=== PATIENT | female | born 1975 | race Caucasian/White ===

== ENCOUNTER 2021-12-19 17:40 | Outpatient (REF) | payer MEDICAID, SELFPAY ==
[2021-12-19 18:37] LABS: HCT 25.5 % (36.0-46.0); MCH 18.1 pg (27.0-33.0); MCHC 26.7 % (32.0-36.0); MPV 9.9 fL (8.0-11.0); Platelet Count 472 10^3/uL (130-400); RBC 3.75 10^6/uL (3.93-5.22); RDW 17.6 % (11.7-14.6); RDW-SD 42.6 fL; WBC 7.17 10^3/uL (4.4-10.8)
[2021-12-19 18:46] LABS: Anion Gap 6.5 mmol/L (3-11); BUN 15 mg/dL (7-18); CO2 28.5 mmol/L (21.0-32.0); CREATININE 0.6 mg/dL (0.55-1.02); Calcium 8.4 mg/dL (8.5-10.1); Calculated LDL 93 mg/dL (<100); Chloride 104 mmol/L (98-107); Cholesterol 176 mg/dL (<200); Glucose 75 mg/dL (74-106); HDL Cholesterol 73 mg/dL (40-60); Sodium 139 mmol/L (136-145); TSH 3.45 uIU/mL (0.36-3.74); Triglyceride 53 mg/dL (<150)
[2021-12-19 20:25] LABS: HGB 6.8 g/dL (11.2-15.7)
[2021-12-19 20:29] LABS: Abs Immature Grans 0.01 10^3/uL (0.0-0.06); Absolute Basophil Count 0.08 10^3/uL (0.0-0.2); Absolute Eosinophil Count 0.17 10^3/uL (0.0-0.7); Absolute Lymphocyte Count 2.07 10^3/uL (1.2-3.4); Absolute Monocyte Count 0.48 10^3/uL (0.1-0.8); Absolute Neutrophil Count 4.42 10^3/uL (1.2-6.7); Basophils % 1.1; Eosinophils % 2.4; Immature Grans % 0.1; Lymphocytes % 28.6; Monocytes % 6.6; Neutrophils % 61.2
[2021-12-19 20:32] LABS: Anisocytosis 3+; Diff Comment RBC Morph Reviewed; Hypochromasia 2+; Microcytosis 3+
[2021-12-21 11:04] LABS: Hepatitis C Ab w Rflx HCV PCR Negative (Negative)
[2021-12-21 11:20] LABS: HIV-1/2 Ag & Ab Screen Negative (Negative)
== END 2021-12-19 17:41 | disposition home or self-care (01) ==
LOC: NCHCN 17:40
PROVIDERS: Visit Provider Physician Assistant
DX: Z11.59 Encounter for screening for other viral diseases (principal); E07.9 Disorder of thyroid, unspecified; Z11.4 Encounter for screening for human immunodeficiency virus [HIV]; Z13.220 Encounter for screening for lipoid disorders; Z00.00 Encounter for general adult medical examination without abnormal findings
CPT/HCPCS: 80048; 80061; 85027; 86803; 87389; 84443; 85007

== ENCOUNTER 2022-12-02 11:59 | Outpatient (REF) | payer MEDICAID, SELFPAY ==
--- NOTE | 2022-12-02 10:30 | PAPFT_PTH ---
PATIENT: Nicolle Marrero LOC: [facility]#:[id number] AGE/SX: 47/F ROOM: RE12/02/[address]: Vita Mcdonald : 1975 BED: DIS: 12/02/2022 SPEC #: [id number] RECD: 12/02/22 18:20 STATUS: ERNIEDevonte REQ #: [id number] JUAN: 12/02/22 10:[address]: Vita Mcdonald DEPT: [facility] Cytology RECD BY: Danii Muñoz ENTERED: 12/02/22 18:20 SP TYPE: PAPFT OTHR DR: Donnie Veloz Tissues: 1 - CX/ENDOCX FOR PAP SMEARS Procedures: PAP THIN PREP/[facility] Screening HPV DNA PROBE Comments: [id number]
[2022-12-02 15:43] LABS: Iron 134 ug/dL (50-170); Total Iron Binding Capacity 346 ug/dL (250-450); Transferrin Sat 39 % (15-50)
[2022-12-02 15:52] LABS: Anion Gap 9.7 mmol/L (3-11); BUN 9 mg/dL (7-18); CO2 31.3 mmol/L (21.0-32.0); CREATININE 0.7 mg/dL (0.55-1.02); Calcium 9.5 mg/dL (8.5-10.1); Chloride 105 mmol/L (98-107); Estimated GFR 105.95 (mL/min/1.73m2); Ferritin 42 ng/mL (8-252); Glucose 101 mg/dL (74-106); Potassium 3.6 mmol/L (3.5-5.1); Sodium 146 mmol/L (136-145); TSH (W/Ref FT4) 3.04 uIU/mL (0.36-3.74)
[2022-12-02 16:02] LABS: Vitamin D 25 Total 46.1 ng/mL (30-100)
[2022-12-02 23:43] LABS: Parathyroid Hormone,Intact 31 pg/mL (19-88)
[2022-12-05 12:52] LABS: IgA 247 mg/dL (85-499); Interpretation (See Note); Tissue Transglutaminase IgA <1.2 U/mL (<4.0)
== END 2022-12-02 12:00 | disposition home or self-care (01) ==
LOC: NCHCN 11:59
PROVIDERS: PCP Physician Assistant; Visit Provider Family Medicine
DX: D50.9 Iron deficiency anemia, unspecified (principal); E83.51 Hypocalcemia; R63.5 Abnormal weight gain; Z12.4 Encounter for screening for malignant neoplasm of cervix; Z11.51 Encounter for screening for human papillomavirus (HPV)
CPT/HCPCS: 80048; 82306; 82784; 83516; 85027; 88142; 82728; 83540; 83550; 83970; 84443; 87624

== ENCOUNTER 2024-11-01 18:31 | Outpatient (REF) | payer MEDICAID, SELFPAY ==
[2024-11-01 21:13] LABS: HCT 40.3 % (36.0-46.0); HGB 13.7 g/dL (11.2-15.7); MCH 30.7 pg (27.0-33.0); MCV 90 fL (80-95); MPV 10.6 fL (8.0-11.0); Platelet Count 312 10^3/uL (130-400); RBC 4.46 10^6/uL (3.93-5.22); RDW 12.1 % (11.7-14.6); RDW-SD 40.2 fL; WBC 8.32 10^3/uL (4.4-10.8)
[2024-11-01 21:23] LABS: Hemoglobin A1C 5.3 % (<5.7)
[2024-11-01 21:27] LABS: Total Iron Binding Capacity 291 ug/dL (250-450)
[2024-11-01 21:55] LABS: Ferritin 81 ng/mL (8-252); TSH (W/Ref FT4) 3.06 uIU/mL (0.36-3.74)
== END 2024-11-01 18:32 | disposition home or self-care (01) ==
LOC: NCHCN 18:31
PROVIDERS: PCP Physician Assistant; Visit Provider Family Medicine
DX: D64.9 Anemia, unspecified (principal); Z13.1 Encounter for screening for diabetes mellitus
CPT/HCPCS: 85027; 82728; 83036; 83550; 84443